=== PATIENT | male | born 1965 | race Caucasian/White ===

== ENCOUNTER 2021-07-15 03:42 | Emergency (ER) | payer OTHER ==
[~2021-07-15] VITALS: Ht 180.3 cm; Wt 77.1 kg
[2021-07-15] MEDS ORDERED: ONDANSETRON HCL INJ 2MG/ML 2ML 2 MG/ML VIAL IV STA (04:21)
[2021-07-15] MEDS ORDERED: SODIUM CHLORIDE 0.9% 1000ML 1,000 ML IV SCH (04:30)
[2021-07-15] MEDS ORDERED: ONDANSETRON HCL INJ 2MG/ML 2ML 2 MG/ML VIAL ONE (04:34)
[2021-07-15] MEDS ORDERED: SODIUM CHLORIDE 0.9% 1000ML 1,000 ML ONE ×3 (04:34→06:25)
[2021-07-15] MEDS ORDERED: INSULIN REGULAR, HUMAN 100 UNIT/1 ML IV ONE ×2 (05:00)
[2021-07-15] MEDS ORDERED: INSULIN REGULAR, HUMAN 100 UNIT/1 ML ONE (05:10)
[2021-07-15] MEDS: SODIUM CHLORIDE 0.9% 1000ML 1,000 ML IV SCH ×2 (05:20→06:15)
[2021-07-15] MEDS ORDERED: KETOROLAC TROMETHAMINE 30 MG/ML VIAL IV STA (05:25)
[2021-07-15 05:35] VITALS: BP 115/71
[2021-07-15] MEDS ORDERED: KETOROLAC TROMETHAMINE 30 MG/ML VIAL ONE (05:42)
[2021-07-15] MEDS ORDERED: DEXAMETHASONE SOD PHOS INJ 4 MG/ML SDV IV ONE (07:30)
[2021-07-15] MEDS ORDERED: SODIUM CHLORIDE 0.9% 100 ML ONE (08:11)
[2021-07-15] MEDS ORDERED: SODIUM CHLORIDE 0.9% 250ML 250 ML ONE (08:11)
[2021-07-15] MEDS ORDERED: DEXAMETHASONE SOD PHOS INJ 4 MG/ML SDV ONE (08:11)
[2021-07-15] MEDS ORDERED: CEFTRIAXONE 1 GM VIAL ONE (08:12)
[2021-07-15] MEDS ORDERED: SODIUM CHLORIDE 0.9% 50ML 50 ML ONE (08:21)
[2021-07-15] MEDS ORDERED: IOPAMIDOL 370 MG/ML 200 ML INFUS..BTL INJ ONE (08:21)
[2021-07-15] MEDS ORDERED: CEFTRIAXONE 1 GM in SODIUM CHLORIDE 0.9% 50ML 50 ML IV SCH (09:00)
== END 2021-07-15 10:26 | disposition short-term general hospital (02) ==
LOC: FSED 04:05
DX: U07.1 COVID-19 (principal); R42 Dizziness and giddiness; R55 Syncope and collapse; S22.42XA Multiple fractures of ribs, left side, initial encounter for closed fracture; W18.39XA Other fall on same level, initial encounter; Y92.008 Other place in unspecified non-institutional (private) residence as the place of occurrence of the external cause; E11.65 Type 2 diabetes mellitus with hyperglycemia; I95.9 Hypotension, unspecified; F17.290 Nicotine dependence, other tobacco product, uncomplicated
CPT/HCPCS: 36415; 70450; 71250; 72125; 74177; 80048; 80076; 81003; 82553; 82948; 83605; 84484; 85025; 96374; 99284; J0456; J0696; J1100; J1817; J1885; J2405; J7030; J7050 ×2; Q9967; U0002; 93005

== ENCOUNTER 2025-05-13 23:15 | Emergency (ER) | payer OTHER ==
[~2025-05-13] VITALS: Ht 182.9 cm; Wt 68.0 kg
[~2025-05-13 23:15] MED LIST: ATORVASTATIN CA20 MG PO; BLOOD GLUCOSE1 EAC1; CRESTOR10 MG PO; DULOXETINE HCL60 MG PO; EASY TOUCH INS SC; GABAPENTIN100 MG PO; LANCET 30G-GLU1 EACH; LANTUS 3ML100 UNITS/ SC; METFORMIN HCL1000 MG PO; NEURONTIN300 MG PO
[2025-05-14 00:23] LABS: BASOPHILS % 0.7 % (0.0-1.0); EOSINOPHILS % 0.4 % (0.0-6.0); LYMPHOCYTES % 15.5 % (18.0-39.1); MONOCYTES % 10.4 % (4.4-11.3); NEUTROPHILS % 72.7 % (38.7-80.0); RED CELL DISTRIBUTION WIDTH 14.6 % (11.7-14.4)
[2025-05-14] MEDS: ONDANSETRON HCL INJ 2MG/ML 2ML 2 MG/ML VIAL IV STA (00:37)
[2025-05-14] MEDS: SODIUM CHLORIDE 0.9% 1000ML 1,000 ML IV ONE ×2 (00:37→02:41)
[2025-05-14 00:38] LABS: EST GLOMERULAR FILTRATION RATE 68.0 ML/MIN (>=60)
[2025-05-14] MEDS ORDERED: IOPAMIDOL 370 MG/ML 100 ML INFUS..BTL INJ ONE (01:47)
[2025-05-14] MEDS: Morphine 2mg Syringe 2 MG/ML SYR IV ONE (02:42)
[2025-05-14] MEDS ORDERED: ONDANSETRON ODT4 MG PO (03:59)
[2025-05-14] MEDS ORDERED: ACID REDUCER20 MG PO (03:59)
[2025-05-14 04:33] LABS: LEUKOCYTE ESTERASE ,URINE NEGATIVE (NEGATIVE); PROTEIN,URINE DIPSTICK NEGATIVE (NEGATIVE)
[2025-05-14 04:34] LABS: URINE UROBILINOGEN 0.2 mg/dL (0.2 - 1)
[2025-05-14 04:38] LABS: EPITHELIAL CELLS,URINE FEW /LPF
[2025-05-14] MEDS ORDERED: CEPHALEXIN500 MG PO (04:40)
[2025-05-14 05:03] VITALS: PULSE 102; RESP 16; TEMP 97.9; O2SAT 98
== END 2025-05-14 05:05 | disposition home or self-care (01) ==
LOC: ER 23:42
DX: R11.2 Nausea with vomiting, unspecified (principal); K29.70 Gastritis, unspecified, without bleeding; N39.0 Urinary tract infection, site not specified; E11.40 Type 2 diabetes mellitus with diabetic neuropathy, unspecified; E78.5 Hyperlipidemia, unspecified; F90.9 Attention-deficit hyperactivity disorder, unspecified type
CPT/HCPCS: 36415; 74177; 80053; 81001; 82948; 83690; 85025; 93005; 99284; J2270; J2405; J7030; Q9967